=== PATIENT | male | born 1975 | race Caucasian/White ===

== ENCOUNTER 2017-02-28 21:10 | Emergency (ER) | payer BC, OTHER ==
[2017-02-28] MEDS ORDERED: Diphtheria,Pertussis(Acell),Tetanus Vaccine 0.5 ML Syringe IM ONE (21:32)
[2017-02-28] MEDS ORDERED: Lidocaine 1% with EPINEPHrine 1:100,000 20 ML MDV INJECT ONE (21:32)
--- NOTE | 2017-02-28 22:24 | EDM.PDOC ---
ED HPI GENERAL MEDICAL PROBLEM - General Chief Complaint: Laceration Stated Complaint: PT HURT LT FOREARM Time Seen by Provider: 02/28/17 21:30 Source of Information: Reports: Patient History Limitations: Reports: No Limitations - History of Present Illness INITIAL COMMENTS - FREE TEXT/NARRATIVE: HISTORY AND PHYSICAL: History of present illness: [Comes to the emergency room with a laceration to his left forearm. He was using a Julia knife and cutting away from his body but towards his outstretched left arm. The knife slipped cutting into his left forearm. Patient applied pressure immediately and presented to the emergency room. Accident occurred about 90 minutes prior to ER arrival. He denies any other complaints concerns or injuries. Last tetanus was greater than 5 years ago per patient report.] Review of systems: As per history of present illness and below otherwise all systems reviewed and negative. Past medical history: As per history of present illness and as reviewed below otherwise noncontributory. Surgical history: As per history of present illness and as reviewed below otherwise noncontributory. Social history: No reported history of drug or alcohol abuse. Family history: As per history of present illness and as reviewed below otherwise noncontributory. Physical exam: HEENT: Atraumatic, normocephalic. Extremities: 2 cm linear laceration to left mid forearm. Neurovascular unremarkable. Motor and sensory unremarkable throughout. Neuro: Awake, alert, oriented. Exam nonfocal. Impression: [Laceration left forearm] Plan: [See procedure note. Wound care instructions given. Patient is in agreement w/ plan. ] Definitive disposition and diagnosis as appropriate pending reevaluation and review of above. Left Arm Pain Score (Numeric/FACES): 4 - Related Data Allergies Allergy/AdvReac Type Severity Reaction Status Date / Time amoxicillin [Amoxicillin] Allergy Hives Verified 02/28/17 21:37 Home Meds: Home Meds Lovastatin 10 mg PO DAILY 07/03/14 [History] amLODIPine [Norvasc] 5 mg PO DAILY 07/03/14 [History] atorvaSTATin [Lipitor] 10 mg PO DAILY 07/03/14 [History] sitaGLIPtin Phos/Metformin HCl [Janumet Xr 50-1,000 mg Tablet] 1 tab PO DAILY [History] Past Medical History HEENT History: Reports: None Cardiovascular History: Reports: High Cholesterol, Hypertension Respiratory History: Reports: None Gastrointestinal History: Reports: None Genitourinary History: Reports: None Musculoskeletal History: Reports: Back Pain, Chronic, Fracture Neurological History: Reports: None Psychiatric History: Reports: None Endocrine/Metabolic History: Reports: Diabetes, Type II Hematologic History: Reports: None Immunologic History: Reports: None Oncologic (Cancer) History: Reports: None Dermatologic History: Reports: None - Infectious Disease History Infectious Disease History: Reports: None - Past Surgical History Head Surgeries/Procedures: Reports: None Respiratory Surgical History: Reports: None Male Surgical History: Reports: None Neurological Surgical History: Reports: None Other Musculoskeletal Surgeries/Procedures:: lumbar 4 and 5 left ankle Social & Family History - Tobacco Use Smoking Status *Q: Current Some Day Smoker Years of Tobacco use: 25 Packs/Tins Daily: 0.1 Used Tobacco, but Quit: No Second Hand Smoke Exposure: No - Caffeine Use Caffeine Use: Reports: None - Alcohol Use Days Per Week of Alcohol Use: 0 - Recreational Drug Use Recreational Drug Use: No ED ROS GENERAL - Review of Systems Review Of Systems: ROS reveals no pertinent complaints other than HPI. ED EXAM, SKIN/RASH Exam: See Below ED SKIN PROCEDURES - Laceration/Wound Repair Left Middle Arm Lac/Wound length In cm: 2 Appearance: Subcutaneous Distal NVT: Neuro & Vascular Intact Anesthetic Type: Local Local Anesthesia - Lidocaine (Xylocaine): 1% With EPI Local Anesthetic Volume: 3cc Skin Prep: Providone-Iodine (Betadine), Isopropyl Alcohol (Alcohol), Saline Exploration/Debridement/Repair: Wound Explored, in a Bloodless Field Closed with: Sutures Suture Size: 4-0 # of Sutures: 4 Suture Type: Nylon, Interrupted Drain Placement: No Sterile Dressing Applied: Nurse Tetanus Status Addressed: Yes Complications: No Course - Vital Signs Last Recorded V/S: Last Vital Signs Temp 97.3 F 02/28/17 21:35 Pulse 104 H 02/28/17 22:52 Resp 20 02/28/17 21:35 BP 132/94 H 02/28/17 22:52 Pulse Ox 93 L 02/28/17 22:52 - Orders/Labs/Meds Orders: Active Orders 24 hr Category Date Time Status Vaccines to be Administered [RC] PER UNIT ROUTINE Care 02/28/17 21:32 Active Meds: Medications Discontinued Medications Generic Name Dose Route Start Last Admin Trade Name Freq PRN Reason Stop Dose Admin Diphtheria/Tetanus/Acell Pertussis 0.5 ml 02/28/17 21:32 02/28/17 22:12 Adacel IM 02/28/17 21:33 0.5 ml .ONCE ONE Administration Lidocaine/Epinephrine 20 ml 02/28/17 21:32 02/28/17 22:15 Xylocaine 1% With Epinephrine 1:100,000 INJECT 02/28/17 21:33 20 ml ONETIME ONE Administration Departure - Departure Time of Disposition: 22:30 Disposition: Home, Self-Care 01 Condition: Good Clinical Impression: Laceration of left forearm Qualifiers: Encounter type: initial encounter Qualified Code(s): S51.812A - Laceration without foreign body of left forearm, initial encounter - Discharge Information Instructions: Laceration Care, Adult Referrals: PCP,None [Primary Care Provider] - Forms: ED Department Discharge Additional Instructions: The following information is given to patients seen in the emergency department who are being discharged to home. This information is to outline your options for follow-up care. We provide all patients seen in our emergency department with a follow-up referral. The need for follow-up, as well as the timing and circumstances, are variable depending upon the specifics of your emergency department visit. If you don't have a primary care physician on staff, we will provide you with a referral. We always advise you to contact your personal physician following an emergency department visit to inform them of the circumstance of the visit and for follow-up with them and/or the need for any referrals to a consulting specialist. The emergency department will also refer you to a specialist when appropriate. This referral assures that you have the opportunity for follow-up care with a specialist. All of these measure are taken in an effort to provide you with optimal care, which includes your follow-up. Under all circumstances we always encourage you to contact your private physician who remains a resource for coordinating your care. When calling for follow-up care, please make the office aware that this follow-up is from your recent emergency room visit. If for any reason you are refused follow-up, please contact the [facility] emergency department at and asked to speak to the emergency department charge nurse. [facility] [address] [place] [id number] Follow-up with your PCP or at the clinic listed above in 48-72 hours. Return to ER in 7 days for sutures removed and as needed as discussed. - My Orders Last 24 Hours: My Active Orders 02/28/17 21:32 Vaccines to be Administered [RC] PER UNIT ROUTINE - Assessment/Plan Last 24 Hours: My Active Orders 02/28/17 21:32 Vaccines to be Administered [RC] PER UNIT ROUTINE
[2017-02-28 23:02] VITALS: BP 132/94
== END 2017-02-28 23:14 | disposition home or self-care (01) ==
LOC: MW.ED 21:10
DX: S51.812A Laceration without foreign body of left forearm, initial encounter (principal); Z23 Encounter for immunization; F17.210 Nicotine dependence, cigarettes, uncomplicated; I10 Essential (primary) hypertension; E78.00 Pure hypercholesterolemia, unspecified; E11.9 Type 2 diabetes mellitus without complications; Z79.899 Other long term (current) drug therapy; Z88.1 Allergy status to other antibiotic agents; W26.0XXA Contact with knife, initial encounter
CPT/HCPCS: 12001; 90471; 90715; 99283; 99283-25

== ENCOUNTER 2017-03-09 14:29 | Emergency (ER) | payer BC | END 2017-03-09 14:35 | disposition left against medical advice (07) | LOC: MW.ED 14:29 | DX: Z53.21 Procedure and treatment not carried out due to patient leaving prior to being seen by health care provider (principal) ==

== ENCOUNTER 2020-12-02 15:45 | Inpatient (IN) | payer BC ==
[2020-12-02 17:14] LABS: BLOOD UREA NITROGEN,BUN 10 mg/dL (7.0-18.0); CARBON DIOXIDE,CO2 23.6 mmol/L (21.0-32.0); CHLORIDE,CL 103 mmol/L (98-107); GLUCOSE RANDOM 244 mg/dL (74-106); POTASSIUM,K 4.6 mmol/L (3.5-5.1); SODIUM,NA 137 mmol/L (136-148)
--- NOTE | 2020-12-02 17:48 | PCM.HP.2 ---
H&P History of Present Illness - General Date of Service: 12/02/20 Admit Problem/Dx: Admission Diagnosis/Problem Admission Diagnosis/Problem Cellulitis and abscess of left lower extremity - History of Present Illness Initial Comments - Free Text/Narative: 45 yo male with pmh of DM and HTN who presents with one week history of rash over right knee. Patient was started on Bactrim by Dr. Huang. Follow up in clinic he did not see any progress so patient was referred to admission for failure of outpatient management of cellulitis over right knee. Patient reports today seeing pustules appear on the surface of his rash but no drainage. He has full range of motion of his knee. He denies any fever. - Related Data Allergies/Adverse Reactions: Allergies Allergy/AdvReac Type Severity Reaction Status Date / Time amoxicillin [Amoxicillin] Allergy Hives Verified 03/09/17 15:07 Home Medications: Home Meds amLODIPine [Norvasc] 5 mg PO DAILY 07/03/14 [History] atorvaSTATin [Lipitor] 10 mg PO DAILY 07/03/14 [History] sitaGLIPtin Phos/Metformin HCl [Janumet Xr 50-1,000 mg Tablet] 1 tab PO DAILY 07/03/14 [History] Dapagliflozin Propanediol [Farxiga] 5 mg PO DAILY 12/02/20 [History] Losartan [Cozaar] 100 mg PO DAILY 12/02/20 [History] sitaGLIPtin Phos/Metformin HCl [Janumet 50-1,000 MG] 1 each PO BID 12/02/20 [History] Past Medical History HEENT History: Reports: None Cardiovascular History: Reports: High Cholesterol, Hypertension Respiratory History: Reports: None Gastrointestinal History: Reports: None Genitourinary History: Reports: None Musculoskeletal History: Reports: Back Pain, Chronic, Fracture Neurological History: Reports: None Psychiatric History: Reports: None Endocrine/Metabolic History: Reports: Diabetes, Type II Hematologic History: Reports: None Immunologic History: Reports: None Oncologic (Cancer) History: Reports: None Dermatologic History: Reports: None - Infectious Disease History Infectious Disease History: Reports: None - Past Surgical History Head Surgeries/Procedures: Reports: None Respiratory Surgical History: Reports: None Male Surgical History: Reports: None Neurological Surgical History: Reports: None Other Musculoskeletal Surgeries/Procedures:: lumbar 4 and 5 left ankle Social & Family History - Family History Family Medical History: No Pertinent Family History - Caffeine Use Caffeine Use: Reports: None H&P Review of Systems - Review of Systems: Review Of Systems: Comprehensive ROS is negative, except as noted in HPI. Exam - Exam Exam: See Below - Vital Signs Weight: 115.984 kg - Exam General: Alert, Oriented HEENT: Mucosa Moist & [place] Lungs: Clear to Auscultation, Normal Respiratory Effort Cardiovascular: Regular Rate, Regular Rhythm GI/Abdominal Exam: Normal Bowel Sounds, Soft, Non-Tender Extremities: Other (edema and erythema under right patella, no effusion of joint noted. small superficial pustules noted but no fluctance.) - Patient Data Lab Results Last 24 hrs: Laboratory Results - last 24 hr 12/02/20 12/02/20 12/02/20 Range/Units 16:00 16:30 16:30 WBC 12.44 H (4.0-11.0) K/uL RBC 4.39 L (4.50-5.90) M/uL Hgb 14.3 (13.0-17.0) g/dL Hct 40.2 (38.0-50.0) % MCV 91.6 (80.0-98.0) fL MCH 32.6 H (27.0-32.0) pg MCHC 35.6 (31.0-37.0) g/dL RDW Std Deviation 42.6 (28.0-62.0) fl RDW Coeff of Edis 13 (11.0-15.0) % Plt Count 381 (150-400) K/uL MPV 8.50 (7.40-12.00) fL Neut % (Auto) 84.6 H (48.0-80.0) % Lymph % (Auto) 7.6 L (16.0-40.0) % [place] % (Auto) 6.4 (0.0-15.0) % Eos % (Auto) 1.0 (0.0-7.0) % Baso % (Auto) 0.4 (0.0-1.5) % Neut # (Auto) 10.5 H (1.4-5.7) K/uL Lymph # (Auto) 1.0 (0.6-2.4) K/uL [place] # (Auto) 0.8 (0.0-0.8) K/uL Eos # (Auto) 0.1 (0.0-0.7) K/uL Baso # (Auto) 0.1 (0.0-0.1) K/uL Nucleated RBC % 0.0 /100WBC Nucleated RBCs # 0 K/uL Sodium 137 (136-148) mmol/L Potassium 4.6 (3.5-5.1) mmol/L Chloride 103 (98-107) mmol/L Carbon Dioxide 23.6 (21.0-32.0) mmol/L BUN 10 (7.0-18.0) mg/dL Creatinine 0.9 (0.8-1.3) mg/dL Est Cr Clr Drug Dosing 112.57 mL/min Estimated GFR (MDRD) > 60.0 ml/min Glucose 244 H (74-106) mg/dL Calcium 8.9 (8.5-10.1) mg/dL Total Bilirubin 0.4 (0.2-1.0) mg/dL AST 9 L (15-37) IU/L ALT 17 (14-63) IU/L Alkaline Phosphatase 115 (46-116) U/L Total Protein 7.6 (6.4-8.2) g/dL Albumin 3.0 L (3.4-5.0) g/dL Globulin 4.6 H (2.6-4.0) g/dL Albumin/Globulin Ratio 0.7 L (0.9-1.6) SARS-CoV-2 RNA (ABBY) NEGATIVE (NEGATIVE) Result Diagrams: 12/02/20 16:30 12/02/20 16:30 Problem List Initiated/Reviewed/Updated: Yes Orders Last 24hrs: Active Orders 24 hr Category Date Time Status Patient Status [ADT] Routine ADT 12/02/20 17:40 Ordered Oxygen Therapy [RC] PRN Care 12/02/20 17:40 Ordered Up ad Kalyn [RC] ASDIRECTED Care 12/02/20 17:40 Ordered VTE/DVT Education [RC] PER UNIT ROUTINE Care 12/02/20 17:40 Ordered Vital Signs [RC] Q4H Care 12/02/20 17:40 Ordered [employer] Diet [DIET] Diet 12/02/20 Breakfast Ordered BASIC METABOLIC PANEL,BMP [CHEM] AM Lab 12/03/20 05:11 Ordered CBC WITH AUTO DIFF [HEME] AM Lab 12/03/20 05:11 Ordered Acetaminophen/HYDROcodone [[place] 325-5 MG] Med 12/02/20 17:40 Ordered 1 tab PO Q6H PRN Enoxaparin [Lovenox] Med 12/02/20 17:45 Ordered 40 mg SUBCUT Q24H Lovastatin [Lovastatin] Med 12/03/20 09:00 Ordered 10 mg PO DAILY Pharmacy to Dose - Vancomycin Med 12/02/20 17:45 Ordered 1 dose .XX ASDIRECTED amLODIPine [Norvasc] Med 12/03/20 09:00 Ordered 5 mg PO DAILY atorvaSTATin [Lipitor] Med 12/03/20 09:00 Ordered 10 mg PO DAILY Resuscitation Status Routine Resus Stat 12/02/20 17:40 Ordered Medication Orders Hydrocodone Bitart/Acetaminophen (Acetaminophen/Hydrocodone 325-5 Mg Tab) 1 tab PO Q6H PRN PRN Reason: Pain (moderate 4-6) Amlodipine Besylate (Amlodipine 5 Mg Tab) 5 mg PO DAILY BRIAN Atorvastatin Calcium (Atorvastatin 10 Mg Tab) 10 mg PO DAILY BRIAN Enoxaparin Sodium (Enoxaparin 40 Mg/0.4 Ml Syringe) 40 mg SUBCUT Q24H BRIAN Non-Formulary Medication (Lovastatin [Lovastatin]) 10 mg PO DAILY BRIAN Assessment/Plan Comment:: 45 yo male with pmh of DM admitted for right leg cellulitis the knee joint does not appear involved, there appears to be no drainable abscess on exam. It looks like a staph infection. Patient has failed Bactrim therapy. We will consider ultrasound of knee. We will treat with Vancomycin. For patient's diabetes we will place on diabetic diet and sliding scale insulin. We will resume patient's home antihypertensive medications.
[2020-12-02] MEDS ORDERED: Glucagon,Human Recombinant 1 MG Vial IM PRN (18:37)
[2020-12-02] MEDS ORDERED: 50% Dextrose in Water 50 ML Syringe IV PRN (18:37)
[2020-12-02] MEDS: Enoxaparin 40 MG/0.4 ML Syringe SUBCUT SCH (19:38)
[2020-12-02] MEDS: VANCOmycin 1.75 GM/350 ML 1.75 GM in Premix Bag 1 BAG IV SCH (19:39)
[2020-12-02] MEDS: Acetaminophen/HYDROcodone 325-5 MG Tab PO PRN (19:46)
[2020-12-02] MEDS: atorvaSTATin 20 MG Tab PO SCH (21:11)
[2020-12-02] MEDS: Insulin Aspart 100 Units/ML 3 ML Pen SUBCUT SCH (21:15)
[2020-12-03] MEDS: VANCOmycin 1.75 GM/350 ML 1.75 GM in Premix Bag 1 BAG IV SCH ×3 (01:36→18:48)
[2020-12-03] MEDS: Acetaminophen/HYDROcodone 325-5 MG Tab PO PRN ×4 (01:45→21:59)
[2020-12-03 06:54] LABS: BLOOD UREA NITROGEN,BUN 10 mg/dL (7.0-18.0); CHLORIDE,CL 104 mmol/L (98-107); GLUCOSE RANDOM 205 mg/dL (74-106); POTASSIUM,K 5.2 mmol/L (3.5-5.1); SODIUM,NA 136 mmol/L (136-148)
[2020-12-03] MEDS: amLODIPine 5 MG Tab PO SCH (08:20)
[2020-12-03] MEDS: Insulin Aspart 100 Units/ML 3 ML Pen SUBCUT SCH ×3 (08:21→18:23)
[2020-12-03] MEDS ORDERED: LOVASTATIN 10 MG PO SCH (09:00)
--- NOTE | 2020-12-03 12:53 | PCM.PN ---
- General Info Date of Service: 12/03/20 Admission Dx/Problem (Free Text): Admission Diagnosis/Problem Admission Diagnosis/Problem Cellulitis and abscess of left lower extremity Subjective Update: Seen at bedside, no acute distress, states redness is better - Review of Systems General: Denies: Fever, Weakness, Fatigue Pulmonary: Denies: Shortness of Breath, Pleuritic Chest Pain Cardiovascular: Denies: Chest Pain, Palpitations Gastrointestinal: Denies: Abdominal Pain, Constipation Genitourinary: Denies: Dysuria, Frequency Musculoskeletal: Reports: Other. Denies: Neck Pain, Arm Pain, Joint Pain, Joint Swelling - Patient Data Vitals - Most Recent: Last Vital Signs Temp 36.4 C 12/03/20 12:00 Pulse 92 12/03/20 12:00 Resp 20 12/03/20 12:00 BP 137/87 12/03/20 12:00 Pulse Ox 95 12/03/20 12:00 Weight - Most Recent: 115.984 kg I&O - Last 24 Hours: Intake & Output 12/02/20 12/03/20 12/03/20 22:59 06:59 14:59 Intake Total 1350 Balance 1350 Lab Results Last 24 Hours: Laboratory Results - last 24 hr 12/02/20 12/02/20 12/02/20 Range/Units 16:00 16:30 16:30 WBC 12.44 H (4.0-11.0) K/uL RBC 4.39 L (4.50-5.90) M/uL Hgb 14.3 (13.0-17.0) g/dL Hct 40.2 (38.0-50.0) % MCV 91.6 (80.0-98.0) fL MCH 32.6 H (27.0-32.0) pg MCHC 35.6 (31.0-37.0) g/dL RDW Std Deviation 42.6 (28.0-62.0) fl RDW Coeff of Edis 13 (11.0-15.0) % Plt Count 381 (150-400) K/uL MPV 8.50 (7.40-12.00) fL Neut % (Auto) 84.6 H (48.0-80.0) % Lymph % (Auto) 7.6 L (16.0-40.0) % Mathews % (Auto) 6.4 (0.0-15.0) % Eos % (Auto) 1.0 (0.0-7.0) % Baso % (Auto) 0.4 (0.0-1.5) % Neut # (Auto) 10.5 H (1.4-5.7) K/uL Lymph # (Auto) 1.0 (0.6-2.4) K/uL Mathews # (Auto) 0.8 (0.0-0.8) K/uL Eos # (Auto) 0.1 (0.0-0.7) K/uL Baso # (Auto) 0.1 (0.0-0.1) K/uL Nucleated RBC % 0.0 /100WBC Nucleated RBCs # 0 K/uL Sodium 137 (136-148) mmol/L Potassium 4.6 (3.5-5.1) mmol/L Chloride 103 (98-107) mmol/L Carbon Dioxide 23.6 (21.0-32.0) mmol/L BUN 10 (7.0-18.0) mg/dL Creatinine 0.9 (0.8-1.3) mg/dL Est Cr Clr Drug Dosing 112.57 mL/min Estimated GFR (MDRD) > 60.0 ml/min Glucose 244 H (74-106) mg/dL POC Glucose (70-99) mg/dL Calcium 8.9 (8.5-10.1) mg/dL Total Bilirubin 0.4 (0.2-1.0) mg/dL AST 9 L (15-37) IU/L ALT 17 (14-63) IU/L Alkaline Phosphatase 115 (46-116) U/L Total Protein 7.6 (6.4-8.2) g/dL Albumin 3.0 L (3.4-5.0) g/dL Globulin 4.6 H (2.6-4.0) g/dL Albumin/Globulin Ratio 0.7 L (0.9-1.6) SARS-CoV-2 RNA (ABBY) NEGATIVE (NEGATIVE) 12/03/20 12/03/20 12/03/20 Range/Units 06:08 06:08 07:03 WBC 11.90 H (4.0-11.0) K/uL RBC 4.30 L (4.50-5.90) M/uL Hgb 14.0 (13.0-17.0) g/dL Hct 39.7 (38.0-50.0) % MCV 92.3 (80.0-98.0) fL MCH 32.6 H (27.0-32.0) pg MCHC 35.3 (31.0-37.0) g/dL RDW Std Deviation 43.1 (28.0-62.0) fl RDW Coeff of Edis 13 (11.0-15.0) % Plt Count 382 (150-400) K/uL MPV 8.70 (7.40-12.00) fL Neut % (Auto) 79.2 (48.0-80.0) % Lymph % (Auto) 10.2 L (16.0-40.0) % Mathews % (Auto) 8.1 (0.0-15.0) % Eos % (Auto) 2.1 (0.0-7.0) % Baso % (Auto) 0.4 (0.0-1.5) % Neut # (Auto) 9.4 H (1.4-5.7) K/uL Lymph # (Auto) 1.2 (0.6-2.4) K/uL Mathews # (Auto) 1.0 H (0.0-0.8) K/uL Eos # (Auto) 0.3 (0.0-0.7) K/uL Baso # (Auto) 0.1 (0.0-0.1) K/uL Nucleated RBC % 0.0 /100WBC Nucleated RBCs # 0 K/uL Sodium 136 (136-148) mmol/L Potassium 5.2 H (3.5-5.1) mmol/L Chloride 104 (98-107) mmol/L Carbon Dioxide 25.0 (21.0-32.0) mmol/L BUN 10 (7.0-18.0) mg/dL Creatinine 1.1 (0.8-1.3) mg/dL Est Cr Clr Drug Dosing 92.10 mL/min Estimated GFR (MDRD) > 60.0 ml/min Glucose 205 H (74-106) mg/dL POC Glucose 173 H (70-99) mg/dL Calcium 9.0 (8.5-10.1) mg/dL Total Bilirubin (0.2-1.0) mg/dL AST (15-37) IU/L ALT (14-63) IU/L Alkaline Phosphatase (46-116) U/L Total Protein (6.4-8.2) g/dL Albumin (3.4-5.0) g/dL Globulin (2.6-4.0) g/dL Albumin/Globulin Ratio (0.9-1.6) SARS-CoV-2 RNA (ABBY) (NEGATIVE) 12/03/20 Range/Units 11:54 WBC (4.0-11.0) K/uL RBC (4.50-5.90) M/uL Hgb (13.0-17.0) g/dL Hct (38.0-50.0) % MCV (80.0-98.0) fL MCH (27.0-32.0) pg MCHC (31.0-37.0) g/dL RDW Std Deviation (28.0-62.0) fl RDW Coeff of Edis (11.0-15.0) % Plt Count (150-400) K/uL MPV (7.40-12.00) fL Neut % (Auto) (48.0-80.0) % Lymph % (Auto) (16.0-40.0) % Mathews % (Auto) (0.0-15.0) % Eos % (Auto) (0.0-7.0) % Baso % (Auto) (0.0-1.5) % Neut # (Auto) (1.4-5.7) K/uL Lymph # (Auto) (0.6-2.4) K/uL Mathews # (Auto) (0.0-0.8) K/uL Eos # (Auto) (0.0-0.7) K/uL Baso # (Auto) (0.0-0.1) K/uL Nucleated RBC % /100WBC Nucleated RBCs # K/uL Sodium (136-148) mmol/L Potassium (3.5-5.1) mmol/L Chloride (98-107) mmol/L Carbon Dioxide (21.0-32.0) mmol/L BUN (7.0-18.0) mg/dL Creatinine (0.8-1.3) mg/dL Est Cr Clr Drug Dosing mL/min Estimated GFR (MDRD) ml/min Glucose (74-106) mg/dL POC Glucose 122 H (70-99) mg/dL Calcium (8.5-10.1) mg/dL Total Bilirubin (0.2-1.0) mg/dL AST (15-37) IU/L ALT (14-63) IU/L Alkaline Phosphatase (46-116) U/L Total Protein (6.4-8.2) g/dL Albumin (3.4-5.0) g/dL Globulin (2.6-4.0) g/dL Albumin/Globulin Ratio (0.9-1.6) SARS-CoV-2 RNA (ABBY) (NEGATIVE) Med Orders - Current: Current Medications Hydrocodone Bitart/Acetaminophen (Acetaminophen/Hydrocodone 325-5 Mg Tab) 1 tab PO Q6H PRN PRN Reason: Pain (moderate 4-6) Last Admin: 12/03/20 09:23 Dose: 1 tab Documented by: Amlodipine Besylate (Amlodipine 5 Mg Tab) 10 mg PO DAILY [facility] Last Admin: 12/03/20 08:20 Dose: 10 mg Documented by: Atorvastatin Calcium (Atorvastatin 20 Mg Tab) 20 mg PO BEDTIME [facility] Last Admin: 12/02/20 21:11 Dose: 20 mg Documented by: Dextrose/Water (50% Dextrose In Water 50 Ml Syringe) 50 ml IV ASDIRECTED PRN PRN Reason: Hypoglycemia Enoxaparin Sodium (Enoxaparin 40 Mg/0.4 Ml Syringe) 40 mg SUBCUT Q24H [facility] Last Admin: 12/02/20 19:38 Dose: 40 mg Documented by: Glucagon (Glucagon,Human Recombinant 1 Mg Vial) 1 mg IM ASDIRECTED PRN PRN Reason: Hypoglycemia Vancomycin HCl 1.75 gm/ Premix 350 mls @ 175 mls/hr IV Q8H [facility] Last Admin: 12/03/20 10:06 Dose: 175 mls/hr Documented by: Insulin Aspart (Insulin Aspart 100 Units/Ml 3 Ml Pen) 0 unit SUBCUT TIDAC [facility]; Protocol Last Admin: 12/03/20 11:57 Dose: Not Given Documented by: Vancomycin HCl (Pharmacy To Dose - Vancomycin) 1 dose .XX ASDIRECTED BRIAN - Exam Quality Assessment: Supplemental Oxygen General: Alert, Oriented Neck: Supple Cardiovascular: Regular Rhythm GI/Abdominal Exam: Normal Bowel Sounds, Soft Extremities: Joint Swelling, Limited Range of Motion, Increased Warmth, Redness Wound/Incisions: Drainage, Erythema Improving Neurological: No: Normal Gait, Normal Speech, Normal Tone - Patient Data Lab Results Last 24 hrs: Laboratory Results - last 24 hr 12/02/20 12/02/20 12/02/20 Range/Units 16:00 16:30 16:30 WBC 12.44 H (4.0-11.0) K/uL RBC 4.39 L (4.50-5.90) M/uL Hgb 14.3 (13.0-17.0) g/dL Hct 40.2 (38.0-50.0) % MCV 91.6 (80.0-98.0) fL MCH 32.6 H (27.0-32.0) pg MCHC 35.6 (31.0-37.0) g/dL RDW Std Deviation 42.6 (28.0-62.0) fl RDW Coeff of Edis 13 (11.0-15.0) % Plt Count 381 (150-400) K/uL MPV 8.50 (7.40-12.00) fL Neut % (Auto) 84.6 H (48.0-80.0) % Lymph % (Auto) 7.6 L (16.0-40.0) % Mathews % (Auto) 6.4 (0.0-15.0) % Eos % (Auto) 1.0 (0.0-7.0) % Baso % (Auto) 0.4 (0.0-1.5) % Neut # (Auto) 10.5 H (1.4-5.7) K/uL Lymph # (Auto) 1.0 (0.6-2.4) K/uL Mathews # (Auto) 0.8 (0.0-0.8) K/uL Eos # (Auto) 0.1 (0.0-0.7) K/uL Baso # (Auto) 0.1 (0.0-0.1) K/uL Nucleated RBC % 0.0 /100WBC Nucleated RBCs # 0 K/uL Sodium 137 (136-148) mmol/L Potassium 4.6 (3.5-5.1) mmol/L Chloride 103 (98-107) mmol/L Carbon Dioxide 23.6 (21.0-32.0) mmol/L BUN 10 (7.0-18.0) mg/dL Creatinine 0.9 (0.8-1.3) mg/dL Est Cr Clr Drug Dosing 112.57 mL/min Estimated GFR (MDRD) > 60.0 ml/min Glucose 244 H (74-106) mg/dL POC Glucose (70-99) mg/dL Calcium 8.9 (8.5-10.1) mg/dL Total Bilirubin 0.4 (0.2-1.0) mg/dL AST 9 L (15-37) IU/L ALT 17 (14-63) IU/L Alkaline Phosphatase 115 (46-116) U/L Total Protein 7.6 (6.4-8.2) g/dL Albumin 3.0 L (3.4-5.0) g/dL Globulin 4.6 H (2.6-4.0) g/dL Albumin/Globulin Ratio 0.7 L (0.9-1.6) SARS-CoV-2 RNA (ABBY) NEGATIVE (NEGATIVE) 12/03/20 12/03/20 12/03/20 Range/Units 06:08 06:08 07:03 WBC 11.90 H (4.0-11.0) K/uL RBC 4.30 L (4.50-5.90) M/uL Hgb 14.0 (13.0-17.0) g/dL Hct 39.7 (38.0-50.0) % MCV 92.3 (80.0-98.0) fL MCH 32.6 H (27.0-32.0) pg MCHC 35.3 (31.0-37.0) g/dL RDW Std Deviation 43.1 (28.0-62.0) fl RDW Coeff of Edis 13 (11.0-15.0) % Plt Count 382 (150-400) K/uL MPV 8.70 (7.40-12.00) fL Neut % (Auto) 79.2 (48.0-80.0) % Lymph % (Auto) 10.2 L (16.0-40.0) % Mathews % (Auto) 8.1 (0.0-15.0) % Eos % (Auto) 2.1 (0.0-7.0) % Baso % (Auto) 0.4 (0.0-1.5) % Neut # (Auto) 9.4 H (1.4-5.7) K/uL Lymph # (Auto) 1.2 (0.6-2.4) K/uL Mathews # (Auto) 1.0 H (0.0-0.8) K/uL Eos # (Auto) 0.3 (0.0-0.7) K/uL Baso # (Auto) 0.1 (0.0-0.1) K/uL Nucleated RBC % 0.0 /100WBC Nucleated RBCs # 0 K/uL Sodium 136 (136-148) mmol/L Potassium 5.2 H (3.5-5.1) mmol/L Chloride 104 (98-107) mmol/L Carbon Dioxide 25.0 (21.0-32.0) mmol/L BUN 10 (7.0-18.0) mg/dL Creatinine 1.1 (0.8-1.3) mg/dL Est Cr Clr Drug Dosing 92.10 mL/min Estimated GFR (MDRD) > 60.0 ml/min Glucose 205 H (74-106) mg/dL POC Glucose 173 H (70-99) mg/dL Calcium 9.0 (8.5-10.1) mg/dL Total Bilirubin (0.2-1.0) mg/dL AST (15-37) IU/L ALT (14-63) IU/L Alkaline Phosphatase (46-116) U/L Total Protein (6.4-8.2) g/dL Albumin (3.4-5.0) g/dL Globulin (2.6-4.0) g/dL Albumin/Globulin Ratio (0.9-1.6) SARS-CoV-2 RNA (ABBY) (NEGATIVE) 12/03/20 Range/Units 11:54 WBC (4.0-11.0) K/uL RBC (4.50-5.90) M/uL Hgb (13.0-17.0) g/dL Hct (38.0-50.0) % MCV (80.0-98.0) fL MCH (27.0-32.0) pg MCHC (31.0-37.0) g/dL RDW Std Deviation (28.0-62.0) fl RDW Coeff of Edis (11.0-15.0) % Plt Count (150-400) K/uL MPV (7.40-12.00) fL Neut % (Auto) (48.0-80.0) % Lymph % (Auto) (16.0-40.0) % Mathews % (Auto) (0.0-15.0) % Eos % (Auto) (0.0-7.0) % Baso % (Auto) (0.0-1.5) % Neut # (Auto) (1.4-5.7) K/uL Lymph # (Auto) (0.6-2.4) K/uL Mathews # (Auto) (0.0-0.8) K/uL Eos # (Auto) (0.0-0.7) K/uL Baso # (Auto) (0.0-0.1) K/uL Nucleated RBC % /100WBC Nucleated RBCs # K/uL Sodium (136-148) mmol/L Potassium (3.5-5.1) mmol/L Chloride (98-107) mmol/L Carbon Dioxide (21.0-32.0) mmol/L BUN (7.0-18.0) mg/dL Creatinine (0.8-1.3) mg/dL Est Cr Clr Drug Dosing mL/min Estimated GFR (MDRD) ml/min Glucose (74-106) mg/dL POC Glucose 122 H (70-99) mg/dL Calcium (8.5-10.1) mg/dL Total Bilirubin (0.2-1.0) mg/dL AST (15-37) IU/L ALT (14-63) IU/L Alkaline Phosphatase (46-116) U/L Total Protein (6.4-8.2) g/dL Albumin (3.4-5.0) g/dL Globulin (2.6-4.0) g/dL Albumin/Globulin Ratio (0.9-1.6) SARS-CoV-2 RNA (ABBY) (NEGATIVE) Result Diagrams: 12/03/20 06:08 12/03/20 06:08 Sepsis Event Note - Evaluation Sepsis Screening Result: No Definite Risk - Focused Exam Vital Signs: Vital Signs Temp Pulse Resp BP BP Pulse Ox 12/03/20 12:00 36.4 C 92 20 137/87 95 12/03/20 08:20 141/49 H 12/03/20 08:00 36.8 C 97 20 149/94 H 98 12/03/20 04:35 36.6 C 95 16 137/85 95 12/03/20 01:40 37.1 C 96 18 140/92 H 97 - Problem List Review Problem List Initiated/Reviewed/Updated: Yes - My Orders Last 24 Hours: My Active Orders 12/03/20 08:26 CULTURE WOUND [RM] Routine 12/03/20 12:05 Knee 1V or 2V Lt [CR] Urgent - Plan Plan:: 45 yo male with pmh of DM admitted for left leg cellulitis the knee joint does not appear involved, cont IV vancomycin, erythema improved, there is come drainage today, will send for culture, obtain xray of knee to r/o bone involvement f/u on ultrasound of knee. cont diabetic diet and sliding scale insulin. cont home antihypertensive medications.
--- NOTE | 2020-12-03 13:00 | CR ---
INDICATION: Patient with redness and swelling in left knee. Evaluate for osteomyelitis. TECHNIQUE: Two views left knee. FINDINGS: Marked soft tissue swelling in the left anterior knee extending extensively into the infrapatellar region could be related to underlying cellulitis. No cortical destruction or erosion to suggest discrete osteomyelitis. MRI would be more sensitive for osteomyelitis. Irregular tubular shaped densities in the subcutaneous tissues may be related to varicose veins or other subcutaneous nodularity. Nodular skin thickening lateral distal left thigh. Mild degenerative arthritis left knee with medial compartment narrowing. Remainder negative. Dictated by Rivera Hernandez MD @ 12/03/2020 12:59:[address] Rivera Hernandez @ Dec 03 2020 12:59PM
--- NOTE | 2020-12-03 15:54 | US ---
Indication: Swelling and drainage left knee rule out abscess Technique: Soft tissue ultrasound Findings : Study images over the left anterior knee demonstrates soft tissue swelling. Heterogeneous fluid collection in the left anterior knee measuring 4.5 x 1.2 x 3.6 centimeters appears avascular. Impression: Anterior soft tissue edema. Heterogeneous fluid collection left anterior knee measuring 4.5 x 1.2 x 2.6 centimeters may represent abscess given clinical history. Dictated by Shweta Tillman MD @ 12/03/2020 3:53:[address] Shweta Tillman @ Dec 03 2020 3:53PM
[2020-12-03] MEDS ORDERED: Lidocaine 1% with EPINEPHrine 1:100,000 10 ML MDV INJECT ONE (17:07)
[2020-12-03] MEDS ORDERED: Lidocaine 1% with EPINEPHrine 1:100,000 20 ML MDV ONE (17:19)
--- NOTE | 2020-12-03 17:42 | PCM.OPNOTE ---
- General Post-Op/Procedure Note Date of Surgery/Procedure: 12/03/20 Operative Procedure(s): i/d L leg abscess Findings: large amount purulent materials from incision; wound was packed 1/4 in iodoform gauze; [id number] Pre Op Diagnosis: L leg infection Post-Op Diagnosis: Same Anesthesia Technique: Local, MAC Primary Surgeon: Darron Garcia Pathology: gs and c+S, aerobic and anaerobic Complications: None Condition: Good Free Text/Narrative:: Intake & Output 12/03/20 12/03/20 12/03/20 06:59 14:59 22:59 Intake Total 1350 1000 Output Total 800 Balance 1350 200
--- NOTE | 2020-12-03 17:47 | PCM.SN.2 ---
- Free Text/Narrative Note: pt seen, chart reviewed; subcutaneous abscess L leg; would benefit from timely i/d at bed side; pt consur, proceed; tks for the consult and care of this pleasant gentleman; [id number]
[2020-12-03] MEDS: Enoxaparin 40 MG/0.4 ML Syringe SUBCUT SCH (18:23)
--- NOTE | 2020-12-03 19:01 | CONS ---
DATE OF CONSULTATION: 12/03/2020 DATE OF : 1975 PRIMARY CARE PHYSICIAN: Contreras Huang MD Consult was called, the patient was seen shortly after that. CONSULTING QUESTION: Left leg infection. HISTORY OF PRESENT ILLNESS: The patient is a 45-year-old gentleman, somehow got some upper left leg infection for eight days and treated with Bactrim, does not seem to be better, admitted to the hospital and got ultrasound which shows 4 x 1 cm collection, and Surgery was then consulted. PAST MEDICAL HISTORY: Significant for no UT or CVA. The patient has diabetes, hypertension. PAST SURGICAL HISTORY: No abdominal surgery. ALLERGIES: Please refer to nursing for details. MEDICATIONS: Please refer to nursing for details. SOCIAL HISTORY: The patient is everyday smoker of cigar. No chewing tobacco or alcohol. PHYSICAL EXAMINATION: GENERAL: A very pleasant gentleman, in no acute distress. HEENT: Normocephalic and atraumatic. Sclerae are anicteric. LUNGS: Clear to auscultation. HEART: Regular rate and rhythm. ABDOMEN: Soft, nondistended. No pulsating or tender midline abdominal structure. No surgical scar. Small umbilical hernia observed. Nontender. SKIN: Intact. EXTREMITIES: On left leg examination, right at the patella and between the patella and upper leg, there is soft tissue swelling and tender to the touch with pus oozing out. IMPRESSION: Diabetic with a white count of 12. Ultrasound confirmed collection. The patient probably would benefit to have timely incision and drainage. Risks and benefits discussed with the patient. The patient agreed to proceed. Addendum: Incision threw out a lot of pus and packed right now. From the surgical standpoint, the patient can go home and have the packing changed every other day. If the patient is discharged, follow up with me in the office next week. As always, thank you for the kind referral. MYNOR / FAY /[id number]
--- NOTE | 2020-12-03 19:59 | OR ---
SURGEON: Darron Garcia MD DATE OF PROCEDURE: 12/03/2020 PROCEDURE: Incision and drainage of left leg abscess. BRIEF OFFICE NOTE: The patient is a 45 year diabetic, has infection in that area for about eight days and antibiotic does not work. Ultrasound shows 4 x 1 cm collection. Surgery was then consulted. PROCEDURE PERFORMED: Procedure performed at bedside after explaining to patient procedure and risks and benefits and leaving it alone may take longer time to be resolved with antibiotic and may even let the disease progress and go to the knee joint. For the time being, it looked like the knee joint was not involved. The patient concurred. The left upper leg was prepped and draped in a sterile fashion. Right at the place where the pus was draining out, the area was numbed with 1% lidocaine with epi and then using 11-blade, a transverse incision was made about 2 cm gushing a large amount of purulent material. The area was then packed with quarter-inch iodoform gauze and appropriate dressing. The patient tolerated the procedure well. There were no intraoperative complications. The drainage had Gram stain, C and S sample sent. The patient would benefit from dressing change every other day and if discharged, can see me in my office for followup. Thanks for the opportunity to take care of this pleasant gentleman. As always, thank you for the kind referral. MYNOR / FAY /[id number]
[2020-12-04] MEDS: atorvaSTATin 20 MG Tab PO SCH ×2 (00:31→20:25)
[2020-12-04] MEDS: VANCOmycin 1.75 GM/350 ML 1.75 GM in Premix Bag 1 BAG IV SCH ×3 (02:06→18:10)
[2020-12-04 06:55] LABS: BLOOD UREA NITROGEN,BUN 14 mg/dL (7.0-18.0); CARBON DIOXIDE,CO2 25.5 mmol/L (21.0-32.0); CHLORIDE,CL 101 mmol/L (98-107); GLUCOSE RANDOM 256 mg/dL (74-106); SODIUM,NA 135 mmol/L (136-148)
[2020-12-04] MEDS: Acetaminophen/HYDROcodone 325-5 MG Tab PO PRN ×3 (07:05→21:50)
[2020-12-04] MEDS: Insulin Aspart 100 Units/ML 3 ML Pen SUBCUT SCH ×3 (07:54→18:09)
[2020-12-04] MEDS: amLODIPine 5 MG Tab PO SCH (08:46)
--- NOTE | 2020-12-04 12:33 | PCM.PN ---
- General Info Date of Service: 12/04/20 Admission Dx/Problem (Free Text): Admission Diagnosis/Problem Admission Diagnosis/Problem Cellulitis and abscess of left lower extremity Subjective Update: Seen at bedside, no acute distress, states redness is better, knee is better after ID Functional Status: Reports: Pain Controlled, Tolerating Diet, Ambulating, Urinating - Review of Systems General: Denies: Fever, Weakness Pulmonary: Denies: Shortness of Breath, Pleuritic Chest Pain Cardiovascular: Denies: Chest Pain, Palpitations Gastrointestinal: Reports: Decreased Appetite. Denies: Abdominal Pain, Constipation Genitourinary: Denies: Dysuria, Frequency, Burning Musculoskeletal: Denies: Neck Pain, Shoulder Pain - Patient Data Vitals - Most Recent: Last Vital Signs Temp 36.5 C 12/04/20 08:00 Pulse 87 12/04/20 08:00 Resp 20 12/04/20 08:00 BP 141/92 H 12/04/20 08:46 Pulse Ox 95 12/04/20 08:00 Weight - Most Recent: 115.984 kg I&O - Last 24 Hours: Intake & Output 12/03/20 12/04/20 12/04/20 22:59 06:59 14:59 Intake Total 1000 950 Output Total 800 1200 Balance 200 -250 Lab Results Last 24 Hours: Laboratory Results - last 24 hr 12/03/20 12/03/20 12/04/20 Range/Units 17:24 17:51 06:00 WBC 8.97 (4.0-11.0) K/uL RBC 4.41 L (4.50-5.90) M/uL Hgb 14.2 (13.0-17.0) g/dL Hct 40.0 (38.0-50.0) % MCV 90.7 (80.0-98.0) fL MCH 32.2 H (27.0-32.0) pg MCHC 35.5 (31.0-37.0) g/dL RDW Std Deviation 41.5 (28.0-62.0) fl RDW Coeff of Edis 13 (11.0-15.0) % Plt Count 362 (150-400) K/uL MPV 8.50 (7.40-12.00) fL Neut % (Auto) 74.7 (48.0-80.0) % Lymph % (Auto) 14.3 L (16.0-40.0) % [place] % (Auto) 8.1 (0.0-15.0) % Eos % (Auto) 2.3 (0.0-7.0) % Baso % (Auto) 0.6 (0.0-1.5) % Neut # (Auto) 6.7 H (1.4-5.7) K/uL Lymph # (Auto) 1.3 (0.6-2.4) K/uL [place] # (Auto) 0.7 (0.0-0.8) K/uL Eos # (Auto) 0.2 (0.0-0.7) K/uL Baso # (Auto) 0.1 (0.0-0.1) K/uL Nucleated RBC % 0.0 /100WBC Nucleated RBCs # 0 K/uL Sodium (136-148) mmol/L Potassium (3.5-5.1) mmol/L Chloride (98-107) mmol/L Carbon Dioxide (21.0-32.0) mmol/L BUN (7.0-18.0) mg/dL Creatinine (0.8-1.3) mg/dL Est Cr Clr Drug Dosing mL/min Estimated GFR (MDRD) ml/min Glucose (74-106) mg/dL POC Glucose 299 H (70-99) mg/dL Calcium (8.5-10.1) mg/dL Phosphorus (2.6-4.7) mg/dL Magnesium (1.8-2.4) mg/dL Vancomycin Trough 13.1 H (5.0-10.0) ug/mL 12/04/20 12/04/20 12/04/20 Range/Units 06:00 06:44 11:30 WBC (4.0-11.0) K/uL RBC (4.50-5.90) M/uL Hgb (13.0-17.0) g/dL Hct (38.0-50.0) % MCV (80.0-98.0) fL MCH (27.0-32.0) pg MCHC (31.0-37.0) g/dL RDW Std Deviation (28.0-62.0) fl RDW Coeff of Edis (11.0-15.0) % Plt Count (150-400) K/uL MPV (7.40-12.00) fL Neut % (Auto) (48.0-80.0) % Lymph % (Auto) (16.0-40.0) % [place] % (Auto) (0.0-15.0) % Eos % (Auto) (0.0-7.0) % Baso % (Auto) (0.0-1.5) % Neut # (Auto) (1.4-5.7) K/uL Lymph # (Auto) (0.6-2.4) K/uL [place] # (Auto) (0.0-0.8) K/uL Eos # (Auto) (0.0-0.7) K/uL Baso # (Auto) (0.0-0.1) K/uL Nucleated RBC % /100WBC Nucleated RBCs # K/uL Sodium 135 L (136-148) mmol/L Potassium 5.0 (3.5-5.1) mmol/L Chloride 101 (98-107) mmol/L Carbon Dioxide 25.5 (21.0-32.0) mmol/L BUN 14 (7.0-18.0) mg/dL Creatinine 1.0 (0.8-1.3) mg/dL Est Cr Clr Drug Dosing 101.31 mL/min Estimated GFR (MDRD) > 60.0 ml/min Glucose 256 H (74-106) mg/dL POC Glucose 253 H 319 H (70-99) mg/dL Calcium 8.6 (8.5-10.1) mg/dL Phosphorus 3.6 (2.6-4.7) mg/dL Magnesium 1.9 (1.8-2.4) mg/dL Vancomycin Trough (5.0-10.0) ug/mL Gregg Results Last 24 Hours: Microbiology 12/03/20 17:30 Gram Stain - Preliminary Leg, Left Med Orders - Current: Current Medications Hydrocodone Bitart/Acetaminophen (Acetaminophen/Hydrocodone 325-5 Mg Tab) 1 tab PO Q6H PRN PRN Reason: Pain (moderate 4-6) Last Admin: 12/04/20 07:05 Dose: 1 tab Documented by: Amlodipine Besylate (Amlodipine 5 Mg Tab) 10 mg PO DAILY [facility] Last Admin: 12/04/20 08:46 Dose: 10 mg Documented by: Atorvastatin Calcium (Atorvastatin 20 Mg Tab) 20 mg PO BEDTIME [facility] Last Admin: 12/04/20 00:31 Dose: 20 mg Documented by: Dextrose/Water (50% Dextrose In Water 50 Ml Syringe) 50 ml IV ASDIRECTED PRN PRN Reason: Hypoglycemia Enoxaparin Sodium (Enoxaparin 40 Mg/0.4 Ml Syringe) 40 mg SUBCUT Q24H [facility] Last Admin: 12/03/20 18:23 Dose: 40 mg Documented by: Glucagon (Glucagon,Human Recombinant 1 Mg Vial) 1 mg IM ASDIRECTED PRN PRN Reason: Hypoglycemia Vancomycin HCl 1.75 gm/ Premix 350 mls @ 175 mls/hr IV Q8H [facility] Last Admin: 12/04/20 10:06 Dose: 175 mls/hr Documented by: Insulin Aspart (Insulin Aspart 100 Units/Ml 3 Ml Pen) 0 unit SUBCUT TIDAC [facility]; Protocol Last Admin: 12/04/20 07:54 Dose: 6 units Documented by: Vancomycin HCl (Pharmacy To Dose - Vancomycin) 1 dose .XX ASDIRECTED [facility]AN Discontinued Medications Lidocaine/Epinephrine (Lidocaine 1% With Epinephrine 1:100,000 10 Ml Mdv) 10 ml INJECT ONETIME ONE Stop: 12/03/20 17:08 Last Admin: 12/03/20 17:53 Dose: Not Given Documented by: Lidocaine/Epinephrine (Lidocaine 1% With Epinephrine 1:100,000 20 Ml Mdv) Confirm Administered Dose 20 ml .ROUTE .STK-MED ONE Stop: 12/03/20 17:20 Last Admin: 12/03/20 17:35 Dose: 20 ml Documented by: - Exam Quality Assessment: No: Supplemental Oxygen General: Alert, Oriented, Cooperative Lungs: No: Clear to Auscultation, Normal Respiratory Effort Cardiovascular: No: Regular Rate, Regular Rhythm GI/Abdominal Exam: No: Normal Bowel Sounds, Soft, Non-Tender Extremities: No: Normal Inspection, Normal Range of Motion - Patient Data Lab Results Last 24 hrs: Laboratory Results - last 24 hr 12/03/20 12/03/20 12/04/20 Range/Units 17:24 17:51 06:00 WBC 8.97 (4.0-11.0) K/uL RBC 4.41 L (4.50-5.90) M/uL Hgb 14.2 (13.0-17.0) g/dL Hct 40.0 (38.0-50.0) % MCV 90.7 (80.0-98.0) fL MCH 32.2 H (27.0-32.0) pg MCHC 35.5 (31.0-37.0) g/dL RDW Std Deviation 41.5 (28.0-62.0) fl RDW Coeff of Edis 13 (11.0-15.0) % Plt Count 362 (150-400) K/uL MPV 8.50 (7.40-12.00) fL Neut % (Auto) 74.7 (48.0-80.0) % Lymph % (Auto) 14.3 L (16.0-40.0) % [place] % (Auto) 8.1 (0.0-15.0) % Eos % (Auto) 2.3 (0.0-7.0) % Baso % (Auto) 0.6 (0.0-1.5) % Neut # (Auto) 6.7 H (1.4-5.7) K/uL Lymph # (Auto) 1.3 (0.6-2.4) K/uL [place] # (Auto) 0.7 (0.0-0.8) K/uL Eos # (Auto) 0.2 (0.0-0.7) K/uL Baso # (Auto) 0.1 (0.0-0.1) K/uL Nucleated RBC % 0.0 /100WBC Nucleated RBCs # 0 K/uL Sodium (136-148) mmol/L Potassium (3.5-5.1) mmol/L Chloride (98-107) mmol/L Carbon Dioxide (21.0-32.0) mmol/L BUN (7.0-18.0) mg/dL Creatinine (0.8-1.3) mg/dL Est Cr Clr Drug Dosing mL/min Estimated GFR (MDRD) ml/min Glucose (74-106) mg/dL POC Glucose 299 H (70-99) mg/dL Calcium (8.5-10.1) mg/dL Phosphorus (2.6-4.7) mg/dL Magnesium (1.8-2.4) mg/dL Vancomycin Trough 13.1 H (5.0-10.0) ug/mL 12/04/20 12/04/20 12/04/20 Range/Units 06:00 06:44 11:30 WBC (4.0-11.0) K/uL RBC (4.50-5.90) M/uL Hgb (13.0-17.0) g/dL Hct (38.0-50.0) % MCV (80.0-98.0) fL MCH (27.0-32.0) pg MCHC (31.0-37.0) g/dL RDW Std Deviation (28.0-62.0) fl RDW Coeff of Edis (11.0-15.0) % Plt Count (150-400) K/uL MPV (7.40-12.00) fL Neut % (Auto) (48.0-80.0) % Lymph % (Auto) (16.0-40.0) % [place] % (Auto) (0.0-15.0) % Eos % (Auto) (0.0-7.0) % Baso % (Auto) (0.0-1.5) % Neut # (Auto) (1.4-5.7) K/uL Lymph # (Auto) (0.6-2.4) K/uL [place] # (Auto) (0.0-0.8) K/uL Eos # (Auto) (0.0-0.7) K/uL Baso # (Auto) (0.0-0.1) K/uL Nucleated RBC % /100WBC Nucleated RBCs # K/uL Sodium 135 L (136-148) mmol/L Potassium 5.0 (3.5-5.1) mmol/L Chloride 101 (98-107) mmol/L Carbon Dioxide 25.5 (21.0-32.0) mmol/L BUN 14 (7.0-18.0) mg/dL Creatinine 1.0 (0.8-1.3) mg/dL Est Cr Clr Drug Dosing 101.31 mL/min Estimated GFR (MDRD) > 60.0 ml/min Glucose 256 H (74-106) mg/dL POC Glucose 253 H 319 H (70-99) mg/dL Calcium 8.6 (8.5-10.1) mg/dL Phosphorus 3.6 (2.6-4.7) mg/dL Magnesium 1.9 (1.8-2.4) mg/dL Vancomycin Trough (5.0-10.0) ug/mL Result Diagrams: 12/04/20 06:00 12/04/20 06:00 Gregg Results Last 24 hrs: Microbiology 12/03/20 17:30 Gram Stain - Preliminary Leg, Left Sepsis Event Note - Evaluation Sepsis Screening Result: No Definite Risk - Focused Exam Vital Signs: Vital Signs Temp Pulse Resp BP BP Pulse Ox 12/04/20 08:46 141/92 H 12/04/20 08:00 36.5 C 87 20 141/92 H 95 12/04/20 04:00 37.1 C 84 14 147/58 H 97 - Problem List & Annotations (1) Cellulitis of knee SNOMED Code(s): 85406442 Code(s): L03.119 - CELLULITIS OF UNSPECIFIED PART OF LIMB Status: Acute Current Visit: Yes - Problem List Review Problem List Initiated/Reviewed/Updated: Yes - Plan Plan:: 45 yo male with pmh of DM admitted for left leg cellulitis the knee joint cont IV vancomycin, erythema improved, s/p I/D , will wait for wound cultures cont diabetic diet and sliding scale insulin. cont home antihypertensive medications. possible dc tomorrow
--- NOTE | 2020-12-04 13:25 | PCM.SURGPN ---
- General Info Date of Service: 12/04/20 Functional Status: Reports: Pain Controlled ("pain much improved", jumped off bed to ground without any pain!) - Review of Systems General: Reports: No Symptoms - Patient Data Vitals - Most Recent: Last Vital Signs Temp 97.6 F 12/04/20 12:00 Pulse 88 12/04/20 12:00 Resp 20 12/04/20 12:00 BP 140/93 H 12/04/20 12:00 Pulse Ox 97 12/04/20 12:00 Weight - Most Recent: 255 lb 11.2 oz I&O - Last 24 Hours: Intake & Output 12/03/20 12/04/20 12/04/20 22:59 06:59 14:59 Intake Total 1000 950 Output Total 800 1200 Balance 200 -250 Lab Results Last 24 Hrs: Laboratory Results - last 24 hr 12/03/20 12/03/20 12/04/20 Range/Units 17:24 17:51 06:00 WBC 8.97 (4.0-11.0) K/uL RBC 4.41 L (4.50-5.90) M/uL Hgb 14.2 (13.0-17.0) g/dL Hct 40.0 (38.0-50.0) % MCV 90.7 (80.0-98.0) fL MCH 32.2 H (27.0-32.0) pg MCHC 35.5 (31.0-37.0) g/dL RDW Std Deviation 41.5 (28.0-62.0) fl RDW Coeff of Edis 13 (11.0-15.0) % Plt Count 362 (150-400) K/uL MPV 8.50 (7.40-12.00) fL Neut % (Auto) 74.7 (48.0-80.0) % Lymph % (Auto) 14.3 L (16.0-40.0) % [place] % (Auto) 8.1 (0.0-15.0) % Eos % (Auto) 2.3 (0.0-7.0) % Baso % (Auto) 0.6 (0.0-1.5) % Neut # (Auto) 6.7 H (1.4-5.7) K/uL Lymph # (Auto) 1.3 (0.6-2.4) K/uL [place] # (Auto) 0.7 (0.0-0.8) K/uL Eos # (Auto) 0.2 (0.0-0.7) K/uL Baso # (Auto) 0.1 (0.0-0.1) K/uL Nucleated RBC % 0.0 /100WBC Nucleated RBCs # 0 K/uL Sodium (136-148) mmol/L Potassium (3.5-5.1) mmol/L Chloride (98-107) mmol/L Carbon Dioxide (21.0-32.0) mmol/L BUN (7.0-18.0) mg/dL Creatinine (0.8-1.3) mg/dL Est Cr Clr Drug Dosing mL/min Estimated GFR (MDRD) ml/min Glucose (74-106) mg/dL POC Glucose 299 H (70-99) mg/dL Calcium (8.5-10.1) mg/dL Phosphorus (2.6-4.7) mg/dL Magnesium (1.8-2.4) mg/dL Vancomycin Trough 13.1 H (5.0-10.0) ug/mL 12/04/20 12/04/20 12/04/20 Range/Units 06:00 06:44 11:30 WBC (4.0-11.0) K/uL RBC (4.50-5.90) M/uL Hgb (13.0-17.0) g/dL Hct (38.0-50.0) % MCV (80.0-98.0) fL MCH (27.0-32.0) pg MCHC (31.0-37.0) g/dL RDW Std Deviation (28.0-62.0) fl RDW Coeff of Edis (11.0-15.0) % Plt Count (150-400) K/uL MPV (7.40-12.00) fL Neut % (Auto) (48.0-80.0) % Lymph % (Auto) (16.0-40.0) % [place] % (Auto) (0.0-15.0) % Eos % (Auto) (0.0-7.0) % Baso % (Auto) (0.0-1.5) % Neut # (Auto) (1.4-5.7) K/uL Lymph # (Auto) (0.6-2.4) K/uL [place] # (Auto) (0.0-0.8) K/uL Eos # (Auto) (0.0-0.7) K/uL Baso # (Auto) (0.0-0.1) K/uL Nucleated RBC % /100WBC Nucleated RBCs # K/uL Sodium 135 L (136-148) mmol/L Potassium 5.0 (3.5-5.1) mmol/L Chloride 101 (98-107) mmol/L Carbon Dioxide 25.5 (21.0-32.0) mmol/L BUN 14 (7.0-18.0) mg/dL Creatinine 1.0 (0.8-1.3) mg/dL Est Cr Clr Drug Dosing 101.31 mL/min Estimated GFR (MDRD) > 60.0 ml/min Glucose 256 H (74-106) mg/dL POC Glucose 253 H 319 H (70-99) mg/dL Calcium 8.6 (8.5-10.1) mg/dL Phosphorus 3.6 (2.6-4.7) mg/dL Magnesium 1.9 (1.8-2.4) mg/dL Vancomycin Trough (5.0-10.0) ug/mL Gregg Results Last 24 Hrs: Microbiology 12/03/20 17:30 Gram Stain - Preliminary Leg, Left Med Orders - Current: Current Medications Hydrocodone Bitart/Acetaminophen (Acetaminophen/Hydrocodone 325-5 Mg Tab) 1 tab PO Q6H PRN PRN Reason: Pain (moderate 4-6) Last Admin: 12/04/20 07:05 Dose: 1 tab Documented by: Amlodipine Besylate (Amlodipine 5 Mg Tab) 10 mg PO DAILY [facility] Last Admin: 12/04/20 08:46 Dose: 10 mg Documented by: Atorvastatin Calcium (Atorvastatin 20 Mg Tab) 20 mg PO BEDTIME [facility] Last Admin: 12/04/20 00:31 Dose: 20 mg Documented by: Dextrose/Water (50% Dextrose In Water 50 Ml Syringe) 50 ml IV ASDIRECTED PRN PRN Reason: Hypoglycemia Enoxaparin Sodium (Enoxaparin 40 Mg/0.4 Ml Syringe) 40 mg SUBCUT Q24H [facility] Last Admin: 12/03/20 18:23 Dose: 40 mg Documented by: Glucagon (Glucagon,Human Recombinant 1 Mg Vial) 1 mg IM ASDIRECTED PRN PRN Reason: Hypoglycemia Vancomycin HCl 1.75 gm/ Premix 350 mls @ 175 mls/hr IV Q8H [facility] Last Admin: 12/04/20 10:06 Dose: 175 mls/hr Documented by: Insulin Aspart (Insulin Aspart 100 Units/Ml 3 Ml Pen) 0 unit SUBCUT TIDAC [facility]; Protocol Last Admin: 12/04/20 12:41 Dose: 8 units Documented by: Vancomycin HCl (Pharmacy To Dose - Vancomycin) 1 dose .XX ASDIRECTED [facility] Discontinued Medications Lidocaine/Epinephrine (Lidocaine 1% With Epinephrine 1:100,000 10 Ml Mdv) 10 ml INJECT ONETIME ONE Stop: 12/03/20 17:08 Last Admin: 12/03/20 17:53 Dose: Not Given Documented by: Lidocaine/Epinephrine (Lidocaine 1% With Epinephrine 1:100,000 20 Ml Mdv) Confirm Administered Dose 20 ml .ROUTE .STK-MED ONE Stop: 12/03/20 17:20 Last Admin: 12/03/20 17:35 Dose: 20 ml Documented by: - Exam Skin: Warm (wound with minimal staints on drsg) Sepsis Event Note - Evaluation Sepsis Screening Result: No Definite Risk - Focused Exam Vital Signs: Vital Signs Temp Pulse Resp BP BP Pulse Ox 12/04/20 12:00 97.6 F 88 20 140/93 H 97 12/04/20 08:46 141/92 H 12/04/20 08:00 97.7 F 87 20 141/92 H 95 12/04/20 04:00 98.7 F 84 14 147/58 H 97 - Problem List Review Problem List Initiated/Reviewed/Updated: Yes - My Orders Last 24 Hours: Active Orders 24 hr Category Date Time Status Communication Order [RC] ROUTINE Care 12/04/20 07:19 Active Wound Care [RC] PRN Care 12/04/20 07:21 Active ANAEROBIC CULTURE Routine Lab 12/03/20 17:30 Received BMP [BASIC METABOLIC PANEL,BMP] [CHEM] AM Lab 12/05/20 05:11 Ordered CBC WITH AUTO DIFF [HEME] AM Lab 12/05/20 05:11 Ordered CULTURE WOUND [RM] Routine Lab 12/03/20 17:30 Received GRAM STAIN [RM] Routine Lab 12/03/20 17:30 Results MAGNESIUM [CHEM] AM Lab 12/05/20 05:11 Ordered PHOSPHORUS [CHEM] AM Lab 12/05/20 05:11 Ordered VANCOMYCIN TROUGH [CHEM] Timed Lab 12/06/20 17:30 Ordered Medication Orders Hydrocodone Bitart/Acetaminophen (Acetaminophen/Hydrocodone 325-5 Mg Tab) 1 tab PO Q6H PRN PRN Reason: Pain (moderate 4-6) Last Admin: 12/04/20 07:05 Dose: 1 tab Documented by: Admin: 12/03/20 21:59 Dose: 1 tab Documented by: Admin: 12/03/20 15:56 Dose: 1 tab Documented by: Admin: 12/03/20 09:23 Dose: 1 tab Documented by: Admin: 12/03/20 01:45 Dose: 1 tab Documented by: Admin: 12/02/20 19:46 Dose: 1 tab Documented by: PATRICIA Amlodipine Besylate (Amlodipine 5 Mg Tab) 10 mg PO DAILY [facility] Last Admin: 12/04/20 08:46 Dose: 10 mg Documented by: Admin: 12/03/20 08:20 Dose: 10 mg Documented by: DANIELLA Atorvastatin Calcium (Atorvastatin 20 Mg Tab) 20 mg PO BEDTIME [facility] Last Admin: 12/04/20 00:31 Dose: 20 mg Documented by: Admin: 12/02/20 21:11 Dose: 20 mg Documented by: JORDAN Dextrose/Water (50% Dextrose In Water 50 Ml Syringe) 50 ml IV ASDIRECTED PRN PRN Reason: Hypoglycemia Enoxaparin Sodium (Enoxaparin 40 Mg/0.4 Ml Syringe) 40 mg SUBCUT Q24H [facility] Last Admin: 12/03/20 18:23 Dose: 40 mg Documented by: Admin: 12/02/20 19:38 Dose: 40 mg Documented by: PATRICIA Glucagon (Glucagon,Human Recombinant 1 Mg Vial) 1 mg IM ASDIRECTED PRN PRN Reason: Hypoglycemia Vancomycin HCl 1.75 gm/ Premix 350 mls @ 175 mls/hr IV Q8H [facility] Last Admin: 12/04/20 10:06 Dose: 175 mls/hr Documented by: Infusion: 12/04/20 04:06 Dose: 175 mls/hr Documented by: Admin: 12/04/20 02:06 Dose: 175 mls/hr Documented by: Infusion: 12/03/20 20:48 Dose: 175 mls/hr Documented by: Admin: 12/03/20 18:48 Dose: 175 mls/hr Documented by: Infusion: 12/03/20 12:06 Dose: 175 mls/hr Documented by: Admin: 12/03/20 10:06 Dose: 175 mls/hr Documented by: Infusion: 12/03/20 03:36 Dose: 175 mls/hr Documented by: Admin: 12/03/20 01:36 Dose: 175 mls/hr Documented by: Infusion: 12/02/20 21:39 Dose: 175 mls/hr Documented by: Admin: 12/02/20 19:39 Dose: 175 mls/hr Documented by: PATRICIA Insulin Aspart (Insulin Aspart 100 Units/Ml 3 Ml Pen) 0 unit SUBCUT TIDAC [facility]; Protocol Last Admin: 12/04/20 12:41 Dose: 8 units Documented by: Admin: 12/04/20 07:54 Dose: 6 units Documented by: Admin: 12/03/20 18:23 Dose: 6 units Documented by: Admin: 12/03/20 11:57 Dose: Not Given Documented by: Admin: 12/03/20 08:21 Dose: 1 units Documented by: Admin: 12/02/20 21:15 Dose: 2 units Documented by: JORDAN Vancomycin HCl (Pharmacy To Dose - Vancomycin) 1 dose .XX ASDIRECTED BRIAN - Assessment Assessment (Free Text/Narrative):: clinicallly doing better, wbc down to 8; if discharge will follow on clinic; packing/drsg, 1/4 iodoform gauze, change every other day;culture pending - Plan Plan (Free Text/Narrative):: clinicallly doing better, wbc down to 8; if discharge will follow on clinic; packing/drsg, 1/4 iodoform gauze, change every other day;culture pending
[2020-12-04] MEDS: Enoxaparin 40 MG/0.4 ML Syringe SUBCUT SCH (18:09)
[2020-12-05] MEDS: VANCOmycin 1.75 GM/350 ML 1.75 GM in Premix Bag 1 BAG IV SCH ×2 (01:54→10:59)
[2020-12-05 06:59] LABS: BLOOD UREA NITROGEN,BUN 9 mg/dL (7.0-18.0); CARBON DIOXIDE,CO2 24.7 mmol/L (21.0-32.0); CHLORIDE,CL 101 mmol/L (98-107); GLUCOSE RANDOM 304 mg/dL (74-106); POTASSIUM,K 5.1 mmol/L (3.5-5.1); SODIUM,NA 134 mmol/L (136-148)
[2020-12-05 08:15] VITALS: PULSE 97
[2020-12-05] MEDS: Insulin Aspart 100 Units/ML 3 ML Pen SUBCUT SCH (08:28)
[2020-12-05] MEDS: amLODIPine 5 MG Tab PO SCH (08:29)
[2020-12-05 08:33] VITALS: BP 150/100
[2020-12-05 08:54] LABS: HEMOGLOBIN A1C 9.1 %
--- NOTE | 2020-12-05 09:27 | PCM.DCSUM1 ---
Discharge Summary - Hospital Course Brief History: 45 yo male with pmh of DM and HTN who presents with one week history of rash over left knee. Patient was started on Bactrim by Dr. Huang. Follow up in clinic he did not see any progress so patient was referred to admission for failure of outpatient management of cellulitis over left knee. Patient reports today seeing pustules appear on the surface of his rash but no drainage. He has full range of motion of his knee. He denies any fever. - Discharge Data Discharge Date: 12/05/20 Discharge Disposition: Home, Self-Care 01 Condition: Good - Referral to Home Health Primary Care Physician: Contreras Huang MD - Patient Summary/Data Operative Procedure(s) Performed: i/d L leg abscess Consults: Consultations 12/05/20 08:32 Consult to Psychiatric Nursing Aide [Consult to Diabetic Nurse Specialist] [CONS] Routine Hospital Course: Admission diagnoses Left knee cellulitis Discharge diagnoses Left knee cellulitis with abscess status post I&D, coag negative staph on cultures Other PMH DM type II, poorly controlled but improving Fabian was admitted secondary to left knee cellulitis. Ultrasound obtained which showed subcutaneous abscess. Dr. Cross general surgery was consulted and performed I&D. Cultures today grew out coag negative staph. He was treated in the hospital with vancomycin. He was also treated with insulin therapy for blood sugars. He reports he recently restarted home regimen of medications and A1c has been improving at home. Patient was counseled heavily on diabetic control as this will only improve healing. He verbalized understanding and has been following with Dr. Miles as an outpatient to improve his control. He will have dressing changes to left knee every other day per Dr. Cross. He will see Dr. Cross this week for further dressing change. He is to not soak the wound he can wash with soapy water. He was counseled on staying off his feet for long periods of time to improve healing. He will be sent home on doxycycline 100 mg twice daily for a total of 14 days. He is to return to the ER if erythema drainage or pain worsens to left knee. He is also to monitor fevers and chills. He verbalized understanding. He will have outpatient follow-up with Dr. Cross as well as Dr. Miles. He is to return to the ER clinic sooner if concerns should arise. - Patient Instructions Diet: Diabetic Diet Activity: As Tolerated, No Strenuous Activities Driving: Do Not Drive Showering/Bathing: May Shower (Cover L knee when open and dressing), No Tub Bathing/Swimming Notify Provider of: Fever, Increased Pain, Swelling and Redness, Drainage, Nausea and/or Vomiting - Discharge Plan *PRESCRIPTION DRUG MONITORING PROGRAM REVIEWED*: Not Applicable *COPY OF PRESCRIPTION DRUG MONITORING REPORT IN PATIENT NAM: Not Applicable Prescriptions/Med Rec: Doxycycline [Vibramycin] 100 mg PO BID #20 tab Home Medications: Home Meds amLODIPine [Norvasc] 10 mg PO DAILY 07/03/14 [History] atorvaSTATin [Lipitor] 20 mg PO BEDTIME 07/03/14 [History] Dapagliflozin Propanediol [Farxiga] 5 mg PO DAILY 12/02/20 [History] Losartan [Cozaar] 100 mg PO DAILY 12/02/20 [History] sitaGLIPtin Phos/Metformin HCl [Janumet 50-1,000 MG] 1 each PO BID 12/02/20 [History] Doxycycline [Vibramycin] 100 mg PO BID #20 tab 12/05/20 [Rx] sitaGLIPtin Phos/Metformin HCl [Janumet 50-1,000 MG] 50 - 1,000 mg PO BID 12/05/20 [History] Oxygen Therapy Mode: Room Air Patient Handouts: Acetaminophen; Oxycodone tablets, Doxycycline tablets or capsules, Cellulitis, Adult, [id number], Docusate capsules Referrals: Darron Garcia MD [Physician] - 12/08/20 1:15 pm Contreras Huang MD [Primary Care Provider] - 12/14/20 8:30 am - Discharge Summary/Plan Comment DC Time >30 min.: No - Patient Data Vitals - Most Recent: Last Vital Signs Temp 97.1 F 12/05/20 08:00 Pulse 97 12/05/20 08:00 Resp 20 12/05/20 08:00 BP 150/100 H 12/05/20 08:29 Pulse Ox 93 L 12/05/20 08:00 Weight - Most Recent: 115.984 kg I&O - Last 24 hours: Intake & Output 12/04/20 12/05/20 12/05/20 22:59 06:59 14:59 Intake Total 1830 550 Balance 1830 550 Lab Results - Last 24 hrs: Laboratory Results - last 24 hr 12/04/20 12/04/20 12/05/20 Range/Units 11:30 16:59 05:40 WBC 8.61 (4.0-11.0) K/uL RBC 4.54 (4.50-5.90) M/uL Hgb 14.7 (13.0-17.0) g/dL Hct 41.0 (38.0-50.0) % MCV 90.3 (80.0-98.0) fL MCH 32.4 H (27.0-32.0) pg MCHC 35.9 (31.0-37.0) g/dL RDW Std Deviation 41.1 (28.0-62.0) fl RDW Coeff of Edis 13 (11.0-15.0) % Plt Count 363 (150-400) K/uL MPV 8.30 (7.40-12.00) fL Neut % (Auto) 71.0 (48.0-80.0) % Lymph % (Auto) 16.8 (16.0-40.0) % Sanders % (Auto) 8.2 (0.0-15.0) % Eos % (Auto) 3.0 (0.0-7.0) % Baso % (Auto) 1.0 (0.0-1.5) % Neut # (Auto) 6.1 H (1.4-5.7) K/uL Lymph # (Auto) 1.5 (0.6-2.4) K/uL Sanders # (Auto) 0.7 (0.0-0.8) K/uL Eos # (Auto) 0.3 (0.0-0.7) K/uL Baso # (Auto) 0.1 (0.0-0.1) K/uL Nucleated RBC % 0.0 /100WBC Nucleated RBCs # 0 K/uL Sodium (136-148) mmol/L Potassium (3.5-5.1) mmol/L Chloride (98-107) mmol/L Carbon Dioxide (21.0-32.0) mmol/L BUN (7.0-18.0) mg/dL Creatinine (0.8-1.3) mg/dL Est Cr Clr Drug Dosing mL/min Estimated GFR (MDRD) ml/min Glucose (74-106) mg/dL POC Glucose 319 H 392 H (70-99) mg/dL Hemoglobin A1c (4.5 - 6.2) % Calcium (8.5-10.1) mg/dL Phosphorus (2.6-4.7) mg/dL Magnesium (1.8-2.4) mg/dL 12/05/20 12/05/20 12/05/20 Range/Units 05:40 05:40 06:28 WBC (4.0-11.0) K/uL RBC (4.50-5.90) M/uL Hgb (13.0-17.0) g/dL Hct (38.0-50.0) % MCV (80.0-98.0) fL MCH (27.0-32.0) pg MCHC (31.0-37.0) g/dL RDW Std Deviation (28.0-62.0) fl RDW Coeff of Edis (11.0-15.0) % Plt Count (150-400) K/uL MPV (7.40-12.00) fL Neut % (Auto) (48.0-80.0) % Lymph % (Auto) (16.0-40.0) % Sanders % (Auto) (0.0-15.0) % Eos % (Auto) (0.0-7.0) % Baso % (Auto) (0.0-1.5) % Neut # (Auto) (1.4-5.7) K/uL Lymph # (Auto) (0.6-2.4) K/uL Sanders # (Auto) (0.0-0.8) K/uL Eos # (Auto) (0.0-0.7) K/uL Baso # (Auto) (0.0-0.1) K/uL Nucleated RBC % /100WBC Nucleated RBCs # K/uL Sodium 134 L (136-148) mmol/L Potassium 5.1 (3.5-5.1) mmol/L Chloride 101 (98-107) mmol/L Carbon Dioxide 24.7 (21.0-32.0) mmol/L BUN 9 (7.0-18.0) mg/dL Creatinine 1.0 (0.8-1.3) mg/dL Est Cr Clr Drug Dosing 101.31 mL/min Estimated GFR (MDRD) > 60.0 ml/min Glucose 304 H (74-106) mg/dL POC Glucose 296 H (70-99) mg/dL Hemoglobin A1c 9.1 H (4.5 - 6.2) % Calcium 8.9 (8.5-10.1) mg/dL Phosphorus 3.6 (2.6-4.7) mg/dL Magnesium 1.8 (1.8-2.4) mg/dL GENO Results - Last 24 hrs: Microbiology 12/03/20 08:26 Wound Culture - Final Leg, Left Staphylococcus Coagulase Neg 12/03/20 17:30 Wound Culture - Final Leg, Left Staphylococcus Coagulase Neg Med Orders - Current: Current Medications Hydrocodone Bitart/Acetaminophen (Acetaminophen/Hydrocodone 325-5 Mg Tab) 1 tab PO Q6H PRN PRN Reason: Pain (moderate 4-6) Last Admin: 12/04/20 21:50 Dose: 1 tab Documented by: Amlodipine Besylate (Amlodipine 5 Mg Tab) 10 mg PO DAILY [facility] Last Admin: 12/05/20 08:29 Dose: 10 mg Documented by: Atorvastatin Calcium (Atorvastatin 20 Mg Tab) 20 mg PO BEDTIME [facility] Last Admin: 12/04/20 20:25 Dose: 20 mg Documented by: Dextrose/Water (50% Dextrose In Water 50 Ml Syringe) 50 ml IV ASDIRECTED PRN PRN Reason: Hypoglycemia Enoxaparin Sodium (Enoxaparin 40 Mg/0.4 Ml Syringe) 40 mg SUBCUT Q24H [facility] Last Admin: 12/04/20 18:09 Dose: 40 mg Documented by: Glucagon (Glucagon,Human Recombinant 1 Mg Vial) 1 mg IM ASDIRECTED PRN PRN Reason: Hypoglycemia Vancomycin HCl 1.75 gm/ Premix 350 mls @ 175 mls/hr IV Q8H [facility] Last Admin: 12/05/20 01:54 Dose: 175 mls/hr Documented by: Insulin Aspart (Insulin Aspart 100 Units/Ml 3 Ml Pen) 0 unit SUBCUT TIDAC [facility]; Protocol Last Admin: 12/05/20 08:28 Dose: 6 units Documented by: Vancomycin HCl (Pharmacy To Dose - Vancomycin) 1 dose .XX ASDIRECTED [facility] Discontinued Medications Lidocaine/Epinephrine (Lidocaine 1% With Epinephrine 1:100,000 10 Ml Mdv) 10 ml INJECT ONETIME ONE Stop: 12/03/20 17:08 Last Admin: 12/03/20 17:53 Dose: Not Given Documented by: Lidocaine/Epinephrine (Lidocaine 1% With Epinephrine 1:100,000 20 Ml Mdv) Confirm Administered Dose 20 ml .ROUTE .ST-MED ONE Stop: 12/03/20 17:20 Last Admin: 12/03/20 17:35 Dose: 20 ml Documented by:
--- NOTE | 2020-12-05 10:20 | PCM.SURGPN ---
- General Info Date of Service: 12/05/20 - Review of Systems Gastrointestinal: Reports: No Symptoms (pain almost all resolved) - Patient Data Vitals - Most Recent: Last Vital Signs Temp 97.1 F 12/05/20 08:00 Pulse 97 12/05/20 08:00 Resp 20 12/05/20 08:00 BP 150/100 H 12/05/20 08:29 Pulse Ox 93 L 12/05/20 08:00 Weight - Most Recent: 255 lb 11.2 oz I&O - Last 24 Hours: Intake & Output 12/04/20 12/05/20 12/05/20 22:59 06:59 14:59 Intake Total 1830 550 Balance 1830 550 Lab Results Last 24 Hrs: Laboratory Results - last 24 hr 12/04/20 12/04/20 12/05/20 Range/Units 11:30 16:59 05:40 WBC 8.61 (4.0-11.0) K/uL RBC 4.54 (4.50-5.90) M/uL Hgb 14.7 (13.0-17.0) g/dL Hct 41.0 (38.0-50.0) % MCV 90.3 (80.0-98.0) fL MCH 32.4 H (27.0-32.0) pg MCHC 35.9 (31.0-37.0) g/dL RDW Std Deviation 41.1 (28.0-62.0) fl RDW Coeff of Edis 13 (11.0-15.0) % Plt Count 363 (150-400) K/uL MPV 8.30 (7.40-12.00) fL Neut % (Auto) 71.0 (48.0-80.0) % Lymph % (Auto) 16.8 (16.0-40.0) % Mckenzie % (Auto) 8.2 (0.0-15.0) % Eos % (Auto) 3.0 (0.0-7.0) % Baso % (Auto) 1.0 (0.0-1.5) % Neut # (Auto) 6.1 H (1.4-5.7) K/uL Lymph # (Auto) 1.5 (0.6-2.4) K/uL Mckenzie # (Auto) 0.7 (0.0-0.8) K/uL Eos # (Auto) 0.3 (0.0-0.7) K/uL Baso # (Auto) 0.1 (0.0-0.1) K/uL Nucleated RBC % 0.0 /100WBC Nucleated RBCs # 0 K/uL Sodium (136-148) mmol/L Potassium (3.5-5.1) mmol/L Chloride (98-107) mmol/L Carbon Dioxide (21.0-32.0) mmol/L BUN (7.0-18.0) mg/dL Creatinine (0.8-1.3) mg/dL Est Cr Clr Drug Dosing mL/min Estimated GFR (MDRD) ml/min Glucose (74-106) mg/dL POC Glucose 319 H 392 H (70-99) mg/dL Hemoglobin A1c (4.5 - 6.2) % Calcium (8.5-10.1) mg/dL Phosphorus (2.6-4.7) mg/dL Magnesium (1.8-2.4) mg/dL 12/05/20 12/05/20 12/05/20 Range/Units 05:40 05:40 06:28 WBC (4.0-11.0) K/uL RBC (4.50-5.90) M/uL Hgb (13.0-17.0) g/dL Hct (38.0-50.0) % MCV (80.0-98.0) fL MCH (27.0-32.0) pg MCHC (31.0-37.0) g/dL RDW Std Deviation (28.0-62.0) fl RDW Coeff of Edis (11.0-15.0) % Plt Count (150-400) K/uL MPV (7.40-12.00) fL Neut % (Auto) (48.0-80.0) % Lymph % (Auto) (16.0-40.0) % Mckenzie % (Auto) (0.0-15.0) % Eos % (Auto) (0.0-7.0) % Baso % (Auto) (0.0-1.5) % Neut # (Auto) (1.4-5.7) K/uL Lymph # (Auto) (0.6-2.4) K/uL Mckenzie # (Auto) (0.0-0.8) K/uL Eos # (Auto) (0.0-0.7) K/uL Baso # (Auto) (0.0-0.1) K/uL Nucleated RBC % /100WBC Nucleated RBCs # K/uL Sodium 134 L (136-148) mmol/L Potassium 5.1 (3.5-5.1) mmol/L Chloride 101 (98-107) mmol/L Carbon Dioxide 24.7 (21.0-32.0) mmol/L BUN 9 (7.0-18.0) mg/dL Creatinine 1.0 (0.8-1.3) mg/dL Est Cr Clr Drug Dosing 101.31 mL/min Estimated GFR (MDRD) > 60.0 ml/min Glucose 304 H (74-106) mg/dL POC Glucose 296 H (70-99) mg/dL Hemoglobin A1c 9.1 H (4.5 - 6.2) % Calcium 8.9 (8.5-10.1) mg/dL Phosphorus 3.6 (2.6-4.7) mg/dL Magnesium 1.8 (1.8-2.4) mg/dL [place] Results Last 24 Hrs: Microbiology 12/03/20 08:26 Wound Culture - Final Leg, Left Staphylococcus Coagulase Neg 12/03/20 17:30 Wound Culture - Final Leg, Left Staphylococcus Coagulase Neg Med Orders - Current: Current Medications Hydrocodone Bitart/Acetaminophen (Acetaminophen/Hydrocodone 325-5 Mg Tab) 1 tab PO Q6H PRN PRN Reason: Pain (moderate 4-6) Last Admin: 12/04/20 21:50 Dose: 1 tab Documented by: Amlodipine Besylate (Amlodipine 5 Mg Tab) 10 mg PO DAILY [facility] Last Admin: 12/05/20 08:29 Dose: 10 mg Documented by: Atorvastatin Calcium (Atorvastatin 20 Mg Tab) 20 mg PO BEDTIME [facility] Last Admin: 12/04/20 20:25 Dose: 20 mg Documented by: Dextrose/Water (50% Dextrose In Water 50 Ml Syringe) 50 ml IV ASDIRECTED PRN PRN Reason: Hypoglycemia Enoxaparin Sodium (Enoxaparin 40 Mg/0.4 Ml Syringe) 40 mg SUBCUT Q24H [facility] Last Admin: 12/04/20 18:09 Dose: 40 mg Documented by: Glucagon (Glucagon,Human Recombinant 1 Mg Vial) 1 mg IM ASDIRECTED PRN PRN Reason: Hypoglycemia Vancomycin HCl 1.75 gm/ Premix 350 mls @ 175 mls/hr IV Q8H [facility] Last Admin: 12/05/20 01:54 Dose: 175 mls/hr Documented by: Insulin Aspart (Insulin Aspart 100 Units/Ml 3 Ml Pen) 0 unit SUBCUT TIDAC [facility]; Protocol Last Admin: 12/05/20 08:28 Dose: 6 units Documented by: Vancomycin HCl (Pharmacy To Dose - Vancomycin) 1 dose .XX ASDIRECTED [facility] Discontinued Medications Lidocaine/Epinephrine (Lidocaine 1% With Epinephrine 1:100,000 10 Ml Mdv) 10 ml INJECT ONETIME ONE Stop: 12/03/20 17:08 Last Admin: 12/03/20 17:53 Dose: Not Given Documented by: Lidocaine/Epinephrine (Lidocaine 1% With Epinephrine 1:100,000 20 Ml Mdv) Confirm Administered Dose 20 ml .ROUTE .STK-MED ONE Stop: 12/03/20 17:20 Last Admin: 12/03/20 17:35 Dose: 20 ml Documented by: Sepsis Event Note - Evaluation Sepsis Screening Result: No Definite Risk - Focused Exam Vital Signs: Vital Signs Temp Pulse Resp BP BP Pulse Ox 12/05/20 08:29 150/100 H 12/05/20 08:00 97.1 F 97 20 150/101 H 93 L 12/05/20 03:00 97.6 F 84 16 147/96 H 95 12/04/20 23:40 98.6 F 80 16 146/93 H 95 Skin Exam (Focused Sepsis): Normal Turgor (wound looked good, no cellulitis, minimal expressing materials; nontender; paking changed) - Problem List Review Problem List Initiated/Reviewed/Updated: Yes - My Orders Last 24 Hours: Active Orders 24 hr Category Date Time Status Ready for Discharge [RC] PER UNIT ROUTINE Care 12/05/20 09:27 Active Consult to [place] [Consult to Diabetic Nurse Cons 12/05/20 08:32 Active Specialist] [CONS] Routine VANCOMYCIN TROUGH [CHEM] Timed Lab 12/06/20 17:30 Ordered Medication Orders Hydrocodone Bitart/Acetaminophen (Acetaminophen/Hydrocodone 325-5 Mg Tab) 1 tab PO Q6H PRN PRN Reason: Pain (moderate 4-6) Last Admin: 12/04/20 21:50 Dose: 1 tab Documented by: Admin: 12/04/20 15:16 Dose: 1 tab Documented by: Admin: 12/04/20 07:05 Dose: 1 tab Documented by: Admin: 12/03/20 21:59 Dose: 1 tab Documented by: Admin: 12/03/20 15:56 Dose: 1 tab Documented by: Admin: 12/03/20 09:23 Dose: 1 tab Documented by: Admin: 12/03/20 01:45 Dose: 1 tab Documented by: Admin: 12/02/20 19:46 Dose: 1 tab Documented by: PATRICIA Amlodipine Besylate (Amlodipine 5 Mg Tab) 10 mg PO DAILY [facility] Last Admin: 12/05/20 08:29 Dose: 10 mg Documented by: Admin: 12/04/20 08:46 Dose: 10 mg Documented by: Admin: 12/03/20 08:20 Dose: 10 mg Documented by: [email or web address] Atorvastatin Calcium (Atorvastatin 20 Mg Tab) 20 mg PO BEDTIME [facility] Last Admin: 12/04/20 20:25 Dose: 20 mg Documented by: Admin: 12/04/20 00:31 Dose: 20 mg Documented by: Admin: 12/02/20 21:11 Dose: 20 mg Documented by: JORDAN Dextrose/Water (50% Dextrose In Water 50 Ml Syringe) 50 ml IV ASDIRECTED PRN PRN Reason: Hypoglycemia Enoxaparin Sodium (Enoxaparin 40 Mg/0.4 Ml Syringe) 40 mg SUBCUT Q24H [facility] Last Admin: 12/04/20 18:09 Dose: 40 mg Documented by: Admin: 12/03/20 18:23 Dose: 40 mg Documented by: Admin: 12/02/20 19:38 Dose: 40 mg Documented by: PATRICIA Glucagon (Glucagon,Human Recombinant 1 Mg Vial) 1 mg IM ASDIRECTED PRN PRN Reason: Hypoglycemia Vancomycin HCl 1.75 gm/ Premix 350 mls @ 175 mls/hr IV Q8H [facility] Last Admin: 12/05/20 01:54 Dose: 175 mls/hr Documented by: [id number] Infusion: 12/04/20 20:10 Dose: 175 mls/hr Documented by: [email or web address] Admin: 12/04/20 18:10 Dose: 175 mls/hr Documented by: Infusion: 12/04/20 12:06 Dose: 175 mls/hr Documented by: Admin: 12/04/20 10:06 Dose: 175 mls/hr Documented by: Infusion: 12/04/20 04:06 Dose: 175 mls/hr Documented by: Admin: 12/04/20 02:06 Dose: 175 mls/hr Documented by: [id number] Infusion: 12/03/20 20:48 Dose: 175 mls/hr Documented by: [id number] Admin: 12/03/20 18:48 Dose: 175 mls/hr Documented by: Infusion: 12/03/20 12:06 Dose: 175 mls/hr Documented by: Admin: 12/03/20 10:06 Dose: 175 mls/hr Documented by: Infusion: 12/03/20 03:36 Dose: 175 mls/hr Documented by: Admin: 12/03/20 01:36 Dose: 175 mls/hr Documented by: [email or web address] Infusion: 12/02/20 21:39 Dose: 175 mls/hr Documented by: [email or web address] Admin: 12/02/20 19:39 Dose: 175 mls/hr Documented by: PATRICIA Insulin Aspart (Insulin Aspart 100 Units/Ml 3 Ml Pen) 0 unit SUBCUT [facility]; Protocol Last Admin: 12/05/20 08:28 Dose: 6 units Documented by: Admin: 12/04/20 18:09 Dose: 10 units Documented by: Admin: 12/04/20 12:41 Dose: 8 units Documented by: Admin: 12/04/20 07:54 Dose: 6 units Documented by: Admin: 12/03/20 18:23 Dose: 6 units Documented by: Admin: 12/03/20 11:57 Dose: Not Given Documented by: Admin: 12/03/20 08:21 Dose: 1 units Documented by: Admin: 12/02/20 21:15 Dose: 2 units Documented by: [id number] Vancomycin HCl (Pharmacy To Dose - Vancomycin) 1 dose .XX ASDIRECTED BRIAN - Assessment Assessment (Free Text/Narrative):: dc home on clindamycin/pain meds/excuse from employment; fu this in office; tks for the kind referral for this pleasant pat - Plan Plan (Free Text/Narrative):: dc home on clindamycin/pain meds/excuse from employment; fu this in office; tks for the kind referral for this pleasant pat
== END 2020-12-05 11:00 | disposition home or self-care (01) | DRG 364 ==
LOC: MW.MS 15:45
PROVIDERS: ADMIT Internal Medicine; ATTEND Internal Medicine
PROC: 0J9P0ZZ Drainage of Left Lower Leg Subcutaneous Tissue and Fascia, Open Approach (ICD-10-PCS; principal; 2020-12-03)
DX: L03.116 Cellulitis of left lower limb (principal); B95.7 Other staphylococcus as the cause of diseases classified elsewhere; L02.416 Cutaneous abscess of left lower limb; E11.9 Type 2 diabetes mellitus without complications; Z79.4 Long term (current) use of insulin; Z20.822 Contact with and (suspected) exposure to COVID-19; I10 Essential (primary) hypertension; E78.5 Hyperlipidemia, unspecified
CPT/HCPCS: 36415; 73560-26-LT; 73560-LT; 76881-26-LT; 76881-LT; 80048; 80053; 80202; 82947; 83036; 83735; 84100; 85025; 87070; 87075; 87205; 99221; 99231; 99238; A9270-GY; J1650; J1815-GY; J3370; U0002

== ENCOUNTER 2022-05-20 11:44 | Emergency (ER) | payer OTHER, BC ==
[2022-05-20] MEDS ORDERED: HYDROmorphone 1 MG/ML Syringe IM ONE (12:12)
[2022-05-20] MEDS ORDERED: Ketorolac 60 MG/2 ML SDV IM ONE (12:12)
== END 2022-05-20 12:16 | disposition home or self-care (01) ==
LOC: MW.ED 11:44
DX: M54.50 Low back pain, unspecified (principal); V89.2XXA Person injured in unspecified motor-vehicle accident, traffic, initial encounter; Y92.096 Garden or yard of other non-institutional residence as the place of occurrence of the external cause
CPT/HCPCS: 96372; 99283; J1170; J1885